=== PATIENT | male | born 1945 | race Caucasian/White ===

== ENCOUNTER 2019-07-05 13:25 | Inpatient (IN) ==
[2019-07-05] MEDS ORDERED: *HR* Heparin 5,000 UNIT/ML VIAL IVP PRN ×2 (13:43)
[2019-07-05] MEDS ORDERED: *HR* Heparin 5,000 UNIT/ML VIAL IVP ONE (13:43)
[2019-07-05] MEDS ORDERED: Aspirin 325 MG TABLET PO ONE (13:43)
[2019-07-05] MEDS ORDERED: Heparin 25,000 UNIT/250 ML D5W 25,000 UNIT/250 ML IV.SOLN IVC SCH (13:45)
[2019-07-05 14:02] LABS: Hematocrit 46.6 % (37.5-50.1); Hemoglobin 15.8 g/dL (12.9-16.9); Mean Corpuscular HGB Conc 33.9 g/dL (31.6-35.5); Mean Corpuscular Volume 94.5 fL (83.0-100.0); Platelet Count 218 K/mcL (140-400); Red Blood Count 4.93 M/mcL (4.19-5.50); Red Cell Distribution Width 12.4 % (11.5-14.5); White Blood Count 7.8 K/mcL (4.3-11.1)
[2019-07-05 14:12] LABS: Heparin anti-factor XA UFH < 0.04 IU/mL (0.30-0.70); Prothrombin Time 11.3 Seconds (9.4-12.1)
[2019-07-05] MEDS ORDERED: Naloxone 0.4 MG/ML INJ IVP PRN (16:23)
[2019-07-05] MEDS ORDERED: Ondansetron 4 MG/2 ML VIAL IVP PRN (16:23)
[2019-07-05] MEDS ORDERED: Ipratropium/Albuterol Neb 3 ML IH PRN (16:47)
[2019-07-05] MEDS ORDERED: *HR* Labetalol 20 MG/4 ML SYRINGE IVP PRN (16:56)
[2019-07-05] MEDS: Ringers Solution, Lactated 1,000 ML IVC SCH (18:33)
[2019-07-05] MEDS ORDERED: Acetaminophen 325 MG TABLET PO ONE (21:58)
[2019-07-06 04:17] LABS: Hematocrit 42.5 % (37.5-50.1); Hemoglobin 14.7 g/dL (12.9-16.9); Mean Corpuscular HGB Conc 34.6 g/dL (31.6-35.5); Mean Corpuscular Hemoglobin 32.6 pg (28.0-33.3); Mean Corpuscular Volume 94.2 fL (83.0-100.0); Mean Platelet Volume 10.5 fL (9.4-12.4); Platelet Count 221 K/mcL (140-400); Red Blood Count 4.51 M/mcL (4.19-5.50); Red Cell Distribution Width 12.5 % (11.5-14.5); White Blood Count 10.8 K/mcL (4.3-11.1)
[2019-07-06 04:30] LABS: Chol/HDL Ratio 7.3 (0-4.9)
[2019-07-06] MEDS ORDERED: Nitroglycerin 0.4 MG TAB.SUBL SL PRN (04:30)
[2019-07-06 04:32] LABS: BUN/Creatinine Ratio 14 (6-26); Blood Urea Nitrogen 14 mg/dL (8-23); Calcium 9.1 mg/dL (8.6-10.3); Carbon Dioxide 24 mEq/L (23-29); Chloride 106 mEq/L (98-107); Glucose 127 mg/dL (70-105); Osmolality,Calculated 294 (280-300); Potassium 3.7 mEq/L (3.5-5.1); Sodium 141 mEq/L (136-145); eGFR For African Americans > 60 (> 60); eGFR For Non-African Americans > 60 (> 60)
[2019-07-06] MEDS ORDERED: predniSONE 20 MG TABLET PO ONE (07:51)
[2019-07-06] MEDS ORDERED: predniSONE 20 MG TABLET PO STA (08:19)
[2019-07-06] MEDS: Ringers Solution, Lactated 1,000 ML IVC SCH (08:53)
[2019-07-06] MEDS ORDERED: amLODIPine 5 MG TABLET PO SCH (09:00)
[2019-07-06] MEDS ORDERED: Loratadine 10 MG TABLET PO SCH (09:00)
[2019-07-06] MEDS ORDERED: Aspirin Enteric Coated 81 MG Tablet PO SCH (09:00)
[2019-07-06] MEDS ORDERED: Tiotropium 18 MCG inhalation IH SCH (09:00)
[2019-07-06 09:50] LABS: Estimated Average Glucose 117 mg/dl
[2019-07-06] MEDS ORDERED: *HR* Heparin 10,000 UNIT/10 ML VIAL ONE (13:00)
[2019-07-06] MEDS ORDERED: Nitroglycerin 1,000 MCG/10 ML VIAL IV ONE (13:00)
[2019-07-06] MEDS ORDERED: Heparin 1,000 UNITS/500 mL 500 ML ONE (13:00)
[2019-07-06] MEDS ORDERED: 0.9 % Sodium Chloride 1,000 ML ONE ×2 (13:00→13:18)
[2019-07-06] MEDS ORDERED: ISOVUE-370 200 ML INFUS..BTL ONE (13:00)
[2019-07-06] MEDS ORDERED: *HR* FentaNYL (PF) 100 MCG/2 ML VIAL ONE (13:18)
[2019-07-06] MEDS ORDERED: *HR* Midazolam HCl 2 MG/2 ML VIAL ONE (13:18)
[2019-07-06] MEDS ORDERED: methylPREDNISolone 125 MG/2 ML VIAL ONE (13:27)
[2019-07-06 19:20] VITALS: BP 120/68
== END 2019-07-06 22:30 | disposition short-term general hospital (02) | DRG 282 ==
LOC: EMEROOARM 13:25 → 2NENU 17:00 → SUATTDRO 17:00 → 2NENU 17:45
PROVIDERS: ADMIT Pharmacist; ATTEND Internal Medicine

== ENCOUNTER 2021-06-08 15:21 | Inpatient (IN) ==
[2021-06-08 16:06] LABS: Basophils % 0.2 %; Hematocrit 43.6 % (37.5-50.1); Hemoglobin 14.2 g/dL (12.9-16.9); Immature Granulocytes % 0.2 % (0-4); Lymphocytes # 0.4 K/mcL (0.6-4.6); Lymphocytes % 10.7 %; Mean Corpuscular HGB Conc 32.6 g/dL (31.6-35.5); Mean Corpuscular Hemoglobin 31.6 pg (28.0-33.3); Mean Corpuscular Volume 97.1 fL (83.0-100.0); Mean Platelet Volume 9.8 fL (9.4-12.4); Monocytes # 0.5 K/mcL (0.0-1.3); Monocytes % 10.9 %; Neutrophils # 3.2 K/mcL (1.6-8.9); Platelet Count 153 K/mcL (140-400); Red Blood Count 4.49 M/mcL (4.19-5.50); Red Cell Distribution Width 12.9 % (11.5-14.5); White Blood Count 4.1 K/mcL (4.3-11.1)
[2021-06-08 16:15] LABS: INR 1.1; Prothrombin Time 12.6 Seconds (9.4-12.1)
[2021-06-08 16:18] LABS: Activated Partial Thrombo Time 30.9 Seconds (26.0-36.0)
[2021-06-08] MEDS ORDERED: Albuterol 2.5 MG/3 ML NEBULIZER IH ONE (16:23)
[2021-06-08 16:30] LABS: Albumin 3.6 g/dL (3.5-5.7); Albumin/Globulin Ratio 1.5 (1.1-2.2); Bilirubin,Direct 0.1 mg/dL (0.0-0.2); Bilirubin,Indirect 0.4 mg/dL (0.0-1.0); Bilirubin,Total 0.5 mg/dL (0.3-1.0); Calcium 7.9 mg/dL (8.6-10.3); Globulin 2.4 g/dL (2.4-3.5); Magnesium 2.2 mg/dL (1.6-2.6); Potassium 3.7 mEq/L (3.5-5.1); Troponin I 0.81 ng/mL (< 0.04)
[2021-06-08] MEDS ORDERED: *HR* Heparin 5,000 UNIT/ML VIAL IVP ONE (17:40)
[2021-06-08] MEDS ORDERED: *HR* Heparin 5,000 UNIT/ML VIAL IVP PRN ×2 (17:40)
[2021-06-08] MEDS ORDERED: Ondansetron 4 MG/2 ML VIAL IVP PRN (18:21)
[2021-06-08] MEDS ORDERED: Naloxone 0.4 MG/ML INJ IVP PRN (18:21)
[2021-06-08] MEDS ORDERED: Acetaminophen 325 MG TABLET PO PRN (18:21)
[2021-06-08] MEDS ORDERED: Azithromycin 500 MG in 0.9 % Sodium Chloride 250 ML IVPB SCH (19:00)
[2021-06-08] MEDS ORDERED: Remdesivir 200 MG in 0.9 % Sodium Chloride 100 ML IVPB ONE (19:00)
[2021-06-08] MEDS ORDERED: cefTRIAXone 1,000 MG in 0.9 % Sodium Chloride Mini Bag 100 ML IVP SCH (19:00)
[2021-06-08] MEDS: Heparin 25,000UNIT/250ML 1/2NS 25,000 UNIT/250 ML IV.SOLN IVC SCH (19:24)
[2021-06-09 02:10] LABS: Hematocrit 41.9 % (37.5-50.1); Hemoglobin 13.6 g/dL (12.9-16.9); Immature Granulocytes % 0.5 % (0-4); Lymphocytes # 0.3 K/mcL (0.6-4.6); Lymphocytes % 7.7 %; Mean Corpuscular HGB Conc 32.5 g/dL (31.6-35.5); Mean Corpuscular Hemoglobin 31.5 pg (28.0-33.3); Mean Platelet Volume 10.1 fL (9.4-12.4); Monocytes # 0.3 K/mcL (0.0-1.3); Monocytes % 6.9 %; Neutrophils # 3.2 K/mcL (1.6-8.9); Platelet Count 151 K/mcL (140-400); Red Blood Count 4.32 M/mcL (4.19-5.50); Red Cell Distribution Width 12.8 % (11.5-14.5); Segmented Neutrophils % 84.9 %; White Blood Count 3.8 K/mcL (4.3-11.1)
[2021-06-09 02:32] LABS: Alanine Aminotransferase 35 Units/L (7-52); Albumin 3.6 g/dL (3.5-5.7); Albumin/Globulin Ratio 1.6 (1.1-2.2); Alkaline Phosphatase 41 Units/L (34-104); Aspartate Amino Transferase 48 Units/L (13-39); BUN/Creatinine Ratio 26 (6-26); Bilirubin,Direct 0.2 mg/dL (0.0-0.2); Bilirubin,Indirect 0.1 mg/dL (0.0-1.0); Bilirubin,Total 0.3 mg/dL (0.3-1.0); Blood Urea Nitrogen 34 mg/dL (8-23); Calcium 7.8 mg/dL (8.6-10.3); Carbon Dioxide 23 mEq/L (23-29); Chloride 110 mEq/L (98-107); Globulin 2.3 g/dL (2.4-3.5); Glucose 149 mg/dL (70-105); Osmolality,Calculated 300 (280-300); Potassium 4.1 mEq/L (3.5-5.1); Sodium 140 mEq/L (136-145); Total Protein 5.9 g/dL (6.4-8.9); eGFR For African Americans > 60 (> 60); eGFR For Non-African Americans 53 (> 60)
[2021-06-09 02:33] LABS: Chol/HDL Ratio 4.2 (0-4.9); Cholesterol 101 mg/dL (< 200); HDL Cholesterol 24 mg/dL (40-59); LDL Cholesterol,Calculated 59 mg/dL (< 100); Magnesium 2.4 mg/dL (1.6-2.6); Phosphorous 4.2 mg/dL (2.7-4.5); Triglycerides 90 mg/dL (< 150)
[2021-06-09 03:35] LABS: Troponin I 0.47 ng/mL (< 0.04)
[2021-06-09 03:39] LABS: Ferritin > 1500 ng/mL (20-250)
[2021-06-09] MEDS: cefTRIAXone 1,000 MG in 0.9 % Sodium Chloride Mini Bag 100 ML IVP SCH (08:03)
[2021-06-09 15:06] LABS: Bacteria,Urine Few per hpf (None-Few); Bilirubin,Urine Negative (Negative); Blood,Urine Negative (Negative); Clarity,Urine Clear (Clear); Color,Urine Yellow (Yellow); Glucose,Urine (UA) 50 mg/dL (Normal); Hyaline Casts,Urine Few per lpf (None Seen); Ketones,Urine Negative (Negative); Leukocyte Esterase,Urine Negative (Negative); Mucus,Urine Few per lpf (None-Few); Nitrite,Urine Negative (Negative); Protein,Urine 30 mg/dL (Neg-Trace); RBC,Urine 0-3 per hpf (0-3); Specific Gravity,Urine 1.028 (1.010-1.025); Squamous Epithelial Cell,Urine Few per hpf (None-Few); Urobilinogen,Urine Normal (Normal); WBC,Urine 0-3 per hpf (0-3)
[2021-06-09] MEDS ORDERED: Remdesivir 100 MG in 0.9 % Sodium Chloride 100 ML IVPB SCH (19:00)
[2021-06-09] MEDS: Heparin 25,000UNIT/250ML 1/2NS 25,000 UNIT/250 ML IV.SOLN IVC SCH (21:59)
[2021-06-10] MEDS: Benzonatate 100 MG CAPSULE PO PRN (06:27)
[2021-06-10 06:28] LABS: Albumin 3.5 g/dL (3.5-5.7); Albumin/Globulin Ratio 1.5 (1.1-2.2); Bilirubin,Direct 0.1 mg/dL (0.0-0.2); Bilirubin,Indirect 0.3 mg/dL (0.0-1.0); Bilirubin,Total 0.4 mg/dL (0.3-1.0); Globulin 2.4 g/dL (2.4-3.5); Total Protein 5.9 g/dL (6.4-8.9)
[2021-06-10 07:00] LABS: Basophils % 0.1 %; Hematocrit 43.1 % (37.5-50.1); Hemoglobin 14.5 g/dL (12.9-16.9); Immature Granulocytes % 0.6 % (0-4); Lymphocytes # 0.4 K/mcL (0.6-4.6); Lymphocytes % 3.8 %; Mean Corpuscular HGB Conc 33.6 g/dL (31.6-35.5); Mean Corpuscular Hemoglobin 32.4 pg (28.0-33.3); Mean Corpuscular Volume 96.2 fL (83.0-100.0); Mean Platelet Volume 10.1 fL (9.4-12.4); Monocytes # 0.8 K/mcL (0.0-1.3); Monocytes % 7.1 %; Platelet Count 181 K/mcL (140-400); Red Blood Count 4.48 M/mcL (4.19-5.50); Red Cell Distribution Width 12.8 % (11.5-14.5); Segmented Neutrophils % 88.4 %
[2021-06-10 07:01] LABS: Neutrophils # 9.6 K/mcL (1.6-8.9); White Blood Count 10.9 K/mcL (4.3-11.1)
[2021-06-10 07:17] LABS: BUN/Creatinine Ratio 29 (6-26); Blood Urea Nitrogen 33 mg/dL (8-23); Carbon Dioxide 26 mEq/L (23-29); Chloride 110 mEq/L (98-107); Glucose 146 mg/dL (70-105); Osmolality,Calculated 306 (280-300); Potassium 4.1 mEq/L (3.5-5.1); Sodium 143 mEq/L (136-145); eGFR For African Americans > 60 (> 60); eGFR For Non-African Americans > 60 (> 60)
[2021-06-10] MEDS: amLODIPine 5 MG TABLET PO SCH (08:05)
[2021-06-10] MEDS: atenoloL 25 MG TABLET PO SCH (08:05)
[2021-06-10] MEDS: lisinopriL 10 MG TABLET PO SCH (08:05)
[2021-06-10] MEDS: cefTRIAXone 1,000 MG in 0.9 % Sodium Chloride Mini Bag 100 ML IVP SCH (08:07)
[2021-06-10] MEDS ORDERED: *HR* LORazepam 2 MG/ML VIAL IVP ONE (09:34)
[2021-06-10] MEDS: Ipratropium 1 PUFF INHALER IH SCH ×4 (10:58→23:43)
[2021-06-10] MEDS ORDERED: Dexamethasone Sodium Phos/PF 10 MG/ML VIAL IVP ONE (11:00)
[2021-06-10 12:01] LABS: Adenovirus Not Detected (Not Detect); Bordetella Pertussis Not Detected (Not Detect); Chlamydophila pneumoniae Not Detected (Not Detect); Coronavirus 229E Not Detected (Not Detect); Coronavirus HKU1 Not Detected (Not Detect); Coronavirus NL63 Not Detected (Not Detect); Coronavirus OC43 Not Detected (Not Detect); Human Metapneumovirus Not Detected (Not Detect); Human Rhinovirus/Enterovirus Not Detected (Not Detect); Influenza A Subtype 2009 H1 Not Detected (Not Detect); Influenza B Not Detected (Not Detect); Mycoplasma pneumoniae Not Detected (Not Detect); Parainfluenza Virus 1 Not Detected (Not Detect); Parainfluenza Virus 2 Not Detected (Not Detect); Parainfluenza Virus 3 Not Detected (Not Detect); Parainfluenza Virus 4 Not Detected (Not Detect); Respiratory Syncytial Virus Not Detected (Not Detect)
[2021-06-10 12:02] LABS: SARS-CoV-2 DETECTED (Not Detect)
[2021-06-10] MEDS: Furosemide 40 MG/4 ML VIAL IVP SCH (19:59)
[2021-06-10] MEDS: Remdesivir 100 MG in 0.9 % Sodium Chloride 100 ML IVPB SCH (20:29)
[2021-06-10 21:14] LABS: ABG Base Excess -1 mEq/L (-2 to 3); ABG HCO3 23 mEq/L (21-27); ABG Oxygen Saturation 86 % (95-98); ABG PCO2 36 mmHg (35-45); ABG PH 7.42 pH Units (7.32-7.45); ABG PO2 50 mmHg (85-104); ABG TCO2 25 mEq/L (20-26); Blood Gas Modality avaps; Blood Gas Pressure Support 35 cm H2O; Blood Gas VT 450 cc
[2021-06-10] MEDS ORDERED: *HR* LORazepam 2 MG/ML VIAL IVP PRN ×2 (21:28→21:32)
[2021-06-11] MEDS ORDERED: *HR* Dextrose 50 % in Water (Syg) 50 ML SYRINGE IVP PRN (01:47)
[2021-06-11] MEDS ORDERED: Dextrose Gel 15 GM/37.5 ML TUBE PO PRN ×2 (01:47)
[2021-06-11] MEDS ORDERED: D5% in Water 1,000 ML IVC PRN (01:47)
[2021-06-11] MEDS: Ipratropium 1 PUFF INHALER IH SCH ×6 (03:35→23:39)
[2021-06-11 03:50] LABS: ABG Base Excess 0 mEq/L (-2 to 3); ABG HCO3 25 mEq/L (21-27); ABG Oxygen Saturation 84 % (95-98); ABG PCO2 39 mmHg (35-45); ABG PH 7.41 pH Units (7.32-7.45); ABG PO2 48 mmHg (85-104); ABG TCO2 26 mEq/L (20-26); Blood Gas Modality avaps; Blood Gas Pressure Support 35 cm H2O; Blood Gas VT 450 cc
[2021-06-11 07:02] LABS: Basophils % 0.1 %; Hematocrit 41.6 % (37.5-50.1); Hemoglobin 13.5 g/dL (12.9-16.9); Immature Granulocytes % 0.5 % (0-4); Lymphocytes # 0.4 K/mcL (0.6-4.6); Lymphocytes % 4.7 %; Mean Corpuscular HGB Conc 32.5 g/dL (31.6-35.5); Mean Corpuscular Hemoglobin 32.3 pg (28.0-33.3); Mean Corpuscular Volume 99.5 fL (83.0-100.0); Mean Platelet Volume 10.1 fL (9.4-12.4); Monocytes # 0.7 K/mcL (0.0-1.3); Monocytes % 8.6 %; Neutrophils # 6.8 K/mcL (1.6-8.9); Platelet Count 198 K/mcL (140-400); Red Blood Count 4.18 M/mcL (4.19-5.50); Red Cell Distribution Width 13.1 % (11.5-14.5); Segmented Neutrophils % 86.1 %; White Blood Count 7.9 K/mcL (4.3-11.1)
[2021-06-11 07:12] LABS: Heparin anti-factor XA UFH 0.44 IU/mL (0.30-0.70); Prothrombin Time 10.6 Seconds (9.4-12.1)
[2021-06-11] MEDS: Multivit/Ca/Min/Fe/FA 1 TAB TABLET PO SCH (09:11)
[2021-06-11] MEDS: Cholecalciferol (D-3) 1,000 UNIT (25MCG) TABLET PO SCH (09:11)
[2021-06-11] MEDS: lisinopriL 10 MG TABLET PO SCH (09:11)
[2021-06-11] MEDS: amLODIPine 5 MG TABLET PO SCH (09:11)
[2021-06-11] MEDS: atenoloL 25 MG TABLET PO SCH (09:12)
[2021-06-11] MEDS: Furosemide 40 MG/4 ML VIAL IVP SCH (09:13)
[2021-06-11] MEDS: cefTRIAXone 1,000 MG in 0.9 % Sodium Chloride Mini Bag 100 ML IVP SCH (09:13)
[2021-06-11] MEDS: Dexamethasone Sodium Phos/PF 10 MG/ML VIAL IVP SCH (09:14)
[2021-06-11] MEDS: Saline Nasal Spray 44 ML BOTTLE NS SCH ×4 (09:14→20:03)
[2021-06-11] MEDS: Chlorhexidine Rinse 15 ML MOUTHWASH MM SCH ×2 (09:14→20:00)
[2021-06-11] MEDS: Saliva Stimulant 44.3ml BOTTLE PO SCH ×4 (09:15→20:03)
[2021-06-11] MEDS: Artificial Tears SOLN 15 ML BOTTLE BOTH EYES SCH ×4 (09:15→20:03)
[2021-06-11 12:01] LABS: Alanine Aminotransferase 47 Units/L (7-52); Albumin 3.8 g/dL (3.5-5.7); Albumin/Globulin Ratio 1.5 (1.1-2.2); Alkaline Phosphatase 72 Units/L (34-104); Aspartate Amino Transferase 52 Units/L (13-39); BUN/Creatinine Ratio 37 (6-26); Bilirubin,Total 0.4 mg/dL (0.3-1.0); Blood Urea Nitrogen 49 mg/dL (8-23); Calcium 8.2 mg/dL (8.6-10.3); Carbon Dioxide 26 mEq/L (23-29); Chloride 107 mEq/L (98-107); Globulin 2.6 g/dL (2.4-3.5); Glucose 173 mg/dL (70-105); Lactate Dehydrogenase 821 Units/L (140-271); Magnesium 2.9 mg/dL (1.6-2.6); Osmolality,Calculated 315 (280-300); Phosphorous 4.5 mg/dL (2.7-4.5); Potassium 4.1 mEq/L (3.5-5.1); Sodium 144 mEq/L (136-145); Total Protein 6.4 g/dL (6.4-8.9); eGFR For African Americans > 60 (> 60); eGFR For Non-African Americans 53 (> 60)
[2021-06-11 12:33] LABS: Ferritin > 1500 ng/mL (20-250)
[2021-06-11 13:04] LABS: C-Reactive Protein 34 mg/L (Less than 10)
[2021-06-11] MEDS: Heparin 25,000UNIT/250ML 1/2NS 25,000 UNIT/250 ML IV.SOLN IVC SCH (15:04)
[2021-06-11] MEDS: Piperacillin/Tazobactam 3.375 GM in 0.9 % Sodium Chloride Mini Bag 100 ML IVPB SCH ×2 (19:25→23:20)
[2021-06-11] MEDS: Remdesivir 100 MG in 0.9 % Sodium Chloride 100 ML IVPB SCH (20:00)
[2021-06-11] MEDS: *HR* Heparin 5,000 UNIT/ML VIAL SQ SCH (21:23)
[2021-06-12 02:44] LABS: Alanine Aminotransferase 53 Units/L (7-52); Albumin 3.4 g/dL (3.5-5.7); Albumin/Globulin Ratio 1.4 (1.1-2.2); Alkaline Phosphatase 79 Units/L (34-104); Aspartate Amino Transferase 60 Units/L (13-39); BUN/Creatinine Ratio 46 (6-26); Bilirubin,Total 0.4 mg/dL (0.3-1.0); Blood Urea Nitrogen 60 mg/dL (8-23); C-Reactive Protein 21 mg/L (Less than 10); Calcium 7.7 mg/dL (8.6-10.3); Carbon Dioxide 25 mEq/L (23-29); Chloride 110 mEq/L (98-107); Globulin 2.4 g/dL (2.4-3.5); Glucose 193 mg/dL (70-105); Osmolality,Calculated 314 (280-300); Potassium 4.1 mEq/L (3.5-5.1); Sodium 141 mEq/L (136-145); Total Protein 5.8 g/dL (6.4-8.9); eGFR For African Americans > 60 (> 60); eGFR For Non-African Americans 54 (> 60)
[2021-06-12 02:45] LABS: Prothrombin Time 10.9 Seconds (9.4-12.1)
[2021-06-12] MEDS: Ipratropium 1 PUFF INHALER IH SCH ×6 (04:07→23:36)
[2021-06-12] MEDS: *HR* Heparin 5,000 UNIT/ML VIAL SQ SCH ×3 (05:08→20:55)
[2021-06-12] MEDS: *HR* LORazepam 2 MG/ML VIAL IVP PRN ×2 (05:48→23:53)
[2021-06-12] MEDS: Saliva Stimulant 44.3ml BOTTLE PO SCH ×4 (07:51→19:38)
[2021-06-12] MEDS: Saline Nasal Spray 44 ML BOTTLE NS SCH ×4 (07:52→19:38)
[2021-06-12] MEDS: Piperacillin/Tazobactam 3.375 GM in 0.9 % Sodium Chloride Mini Bag 100 ML IVPB SCH ×3 (07:53→23:52)
[2021-06-12] MEDS: Dexamethasone Sodium Phos/PF 10 MG/ML VIAL IVP SCH (07:55)
[2021-06-12] MEDS: Multivit/Ca/Min/Fe/FA 1 TAB TABLET PO SCH (07:56)
[2021-06-12] MEDS: Furosemide 40 MG/4 ML VIAL IVP SCH (07:56)
[2021-06-12] MEDS: atenoloL 25 MG TABLET PO SCH (07:56)
[2021-06-12] MEDS: Cholecalciferol (D-3) 1,000 UNIT (25MCG) TABLET PO SCH (07:56)
[2021-06-12] MEDS: amLODIPine 5 MG TABLET PO SCH (07:56)
[2021-06-12] MEDS: Artificial Tears SOLN 15 ML BOTTLE BOTH EYES SCH ×4 (08:04→19:38)
[2021-06-12] MEDS: Chlorhexidine Rinse 15 ML MOUTHWASH MM SCH ×2 (08:08→19:38)
[2021-06-12] MEDS: Remdesivir 100 MG in 0.9 % Sodium Chloride 100 ML IVPB SCH (19:38)
[2021-06-12] MEDS: Melatonin 3 MG TABLET PO PRN (19:39)
[2021-06-12] MEDS: Benzonatate 100 MG CAPSULE PO PRN (23:53)
[2021-06-13] MEDS: Ipratropium 1 PUFF INHALER IH SCH ×6 (03:52→23:22)
[2021-06-13 05:30] LABS: Prothrombin Time 11.4 Seconds (9.4-12.1)
[2021-06-13] MEDS: *HR* Enoxaparin 40 MG/0.4 ML SYRINGE SQ SCH (05:33)
[2021-06-13 05:37] LABS: Alanine Aminotransferase 64 Units/L (7-52); Albumin 3.5 g/dL (3.5-5.7); Albumin/Globulin Ratio 1.5 (1.1-2.2); Alkaline Phosphatase 107 Units/L (34-104); Aspartate Amino Transferase 53 Units/L (13-39); BUN/Creatinine Ratio 41 (6-26); Bilirubin,Total 0.6 mg/dL (0.3-1.0); Blood Urea Nitrogen 56 mg/dL (8-23); C-Reactive Protein 18 mg/L (Less than 10); Calcium 7.9 mg/dL (8.6-10.3); Carbon Dioxide 30 mEq/L (23-29); Chloride 112 mEq/L (98-107); Globulin 2.4 g/dL (2.4-3.5); Glucose 239 mg/dL (70-105); Osmolality,Calculated 319 (280-300); Potassium 4.4 mEq/L (3.5-5.1); Sodium 143 mEq/L (136-145); Total Protein 5.9 g/dL (6.4-8.9); eGFR For African Americans > 60 (> 60); eGFR For Non-African Americans 51 (> 60)
[2021-06-13] MEDS: Piperacillin/Tazobactam 3.375 GM in 0.9 % Sodium Chloride Mini Bag 100 ML IVPB SCH ×3 (08:23→23:19)
[2021-06-13] MEDS: Saliva Stimulant 44.3ml BOTTLE PO SCH ×4 (08:23→20:24)
[2021-06-13] MEDS: Artificial Tears SOLN 15 ML BOTTLE BOTH EYES SCH ×4 (08:23→20:24)
[2021-06-13] MEDS: Saline Nasal Spray 44 ML BOTTLE NS SCH ×4 (08:23→20:24)
[2021-06-13] MEDS: Chlorhexidine Rinse 15 ML MOUTHWASH MM SCH ×2 (08:24→20:24)
[2021-06-13] MEDS: Furosemide 40 MG/4 ML VIAL IVP SCH (08:24)
[2021-06-13] MEDS: Dexamethasone Sodium Phos/PF 10 MG/ML VIAL IVP SCH (08:24)
[2021-06-13] MEDS: Cholecalciferol (D-3) 1,000 UNIT (25MCG) TABLET PO SCH (08:25)
[2021-06-13] MEDS: atenoloL 25 MG TABLET PO SCH (08:25)
[2021-06-13] MEDS: Multivit/Ca/Min/Fe/FA 1 TAB TABLET PO SCH (08:25)
[2021-06-13] MEDS: Nystatin SUSP 5 ML UD.LIQ PO SCH ×2 (16:14→20:24)
[2021-06-13] MEDS: *HR* LORazepam 2 MG/ML VIAL IVP PRN (21:38)
[2021-06-14] MEDS: Ipratropium 1 PUFF INHALER IH SCH ×6 (03:39→23:27)
[2021-06-14] MEDS: *HR* Enoxaparin 40 MG/0.4 ML SYRINGE SQ SCH (05:10)
[2021-06-14] MEDS: Saline Nasal Spray 44 ML BOTTLE NS SCH ×4 (08:09→20:12)
[2021-06-14] MEDS: Saliva Stimulant 44.3ml BOTTLE PO SCH ×4 (08:09→20:12)
[2021-06-14] MEDS: Chlorhexidine Rinse 15 ML MOUTHWASH MM SCH ×2 (08:09→20:11)
[2021-06-14] MEDS: Artificial Tears SOLN 15 ML BOTTLE BOTH EYES SCH ×4 (08:09→20:12)
[2021-06-14] MEDS: Multivit/Ca/Min/Fe/FA 1 TAB TABLET PO SCH (08:09)
[2021-06-14] MEDS: Nystatin SUSP 5 ML UD.LIQ PO SCH ×4 (08:09→20:11)
[2021-06-14] MEDS: Cholecalciferol (D-3) 1,000 UNIT (25MCG) TABLET PO SCH (08:10)
[2021-06-14] MEDS: atenoloL 25 MG TABLET PO SCH (08:10)
[2021-06-14] MEDS: Dexamethasone Sodium Phos/PF 10 MG/ML VIAL IVP SCH (08:10)
[2021-06-14] MEDS: Piperacillin/Tazobactam 3.375 GM in 0.9 % Sodium Chloride Mini Bag 100 ML IVPB SCH ×3 (08:11→23:07)
[2021-06-14 13:52] LABS: Basophils % 0.3 %; Hematocrit 46.7 % (37.5-50.1); Immature Granulocytes % 1.2 % (0-4); Lymphocytes # 0.3 K/mcL (0.6-4.6); Lymphocytes % 1.9 %; Mean Corpuscular HGB Conc 32.3 g/dL (31.6-35.5); Mean Corpuscular Hemoglobin 31.7 pg (28.0-33.3); Mean Corpuscular Volume 97.9 fL (83.0-100.0); Mean Platelet Volume 10.6 fL (9.4-12.4); Monocytes # 0.9 K/mcL (0.0-1.3); Monocytes % 5.7 %; Platelet Count 248 K/mcL (140-400); Red Blood Count 4.77 M/mcL (4.19-5.50); Red Cell Distribution Width 12.6 % (11.5-14.5); Segmented Neutrophils % 90.9 %
[2021-06-14 13:56] LABS: Basophils # 0.1 K/mcL (0.0-0.2); Hemoglobin 15.1 g/dL (12.9-16.9); White Blood Count 15.4 K/mcL (4.3-11.1)
[2021-06-14 14:26] LABS: Alanine Aminotransferase 51 Units/L (7-52); Albumin 3.6 g/dL (3.5-5.7); Albumin/Globulin Ratio 1.4 (1.1-2.2); Alkaline Phosphatase 154 Units/L (34-104); Aspartate Amino Transferase 37 Units/L (13-39); BUN/Creatinine Ratio 42 (6-26); Bilirubin,Total 0.7 mg/dL (0.3-1.0); Blood Urea Nitrogen 48 mg/dL (8-23); Calcium 8.1 mg/dL (8.6-10.3); Carbon Dioxide 28 mEq/L (23-29); Chloride 108 mEq/L (98-107); Globulin 2.6 g/dL (2.4-3.5); Glucose 257 mg/dL (70-105); Osmolality,Calculated 317 (280-300); Potassium 4.9 mEq/L (3.5-5.1); Sodium 143 mEq/L (136-145); Total Protein 6.2 g/dL (6.4-8.9); eGFR For African Americans > 60 (> 60); eGFR For Non-African Americans > 60 (> 60)
[2021-06-14] MEDS: *HR* LORazepam 2 MG/ML VIAL IVP PRN ×2 (15:01→23:08)
[2021-06-14] MEDS ORDERED: Lidocaine -MPF 1% 5 ML AMPUL INFILT ONE (17:43)
[2021-06-14] MEDS: Melatonin 3 MG TABLET PO PRN (20:11)
[2021-06-14] MEDS: Benzonatate 100 MG CAPSULE PO PRN (20:12)
[2021-06-15 02:02] LABS: BUN/Creatinine Ratio 40 (6-26); Blood Urea Nitrogen 44 mg/dL (8-23); Calcium 7.7 mg/dL (8.6-10.3); Carbon Dioxide 28 mEq/L (23-29); Chloride 112 mEq/L (98-107); Glucose 243 mg/dL (70-105); Magnesium 3.1 mg/dL (1.6-2.6); Osmolality,Calculated 317 (280-300); Phosphorous 3.3 mg/dL (2.7-4.5); Potassium 4.7 mEq/L (3.5-5.1); Sodium 144 mEq/L (136-145); Triglycerides 301 mg/dL (< 150); eGFR For African Americans > 60 (> 60); eGFR For Non-African Americans > 60 (> 60)
[2021-06-15] MEDS: Ipratropium 1 PUFF INHALER IH SCH ×6 (03:50→23:58)
[2021-06-15] MEDS: *HR* Enoxaparin 40 MG/0.4 ML SYRINGE SQ SCH (05:21)
[2021-06-15] MEDS: Nystatin SUSP 5 ML UD.LIQ PO SCH ×4 (08:38→18:15)
[2021-06-15] MEDS: Dexamethasone Sodium Phos/PF 10 MG/ML VIAL IVP SCH (08:38)
[2021-06-15] MEDS: atenoloL 25 MG TABLET PO SCH (08:38)
[2021-06-15] MEDS: Artificial Tears SOLN 15 ML BOTTLE BOTH EYES SCH ×4 (08:39→19:41)
[2021-06-15] MEDS: Saline Nasal Spray 44 ML BOTTLE NS SCH ×4 (08:39→19:41)
[2021-06-15] MEDS: Piperacillin/Tazobactam 3.375 GM in 0.9 % Sodium Chloride Mini Bag 100 ML IVPB SCH ×3 (08:39→23:50)
[2021-06-15] MEDS: Saliva Stimulant 44.3ml BOTTLE PO SCH ×4 (08:41→20:30)
[2021-06-15] MEDS: Multivit/Ca/Min/Fe/FA 1 TAB TABLET PO SCH (08:49)
[2021-06-15] MEDS: Chlorhexidine Rinse 15 ML MOUTHWASH MM SCH ×3 (08:49→20:30)
[2021-06-15] MEDS: Cholecalciferol (D-3) 1,000 UNIT (25MCG) TABLET PO SCH (08:50)
[2021-06-15] MEDS ORDERED: D10% in Water 500 ML IVC PRN (11:12)
[2021-06-15] MEDS ORDERED: *HR* Dextrose 50 % in Water (Syg) 50 ML SYRINGE IVP PRN (11:40)
[2021-06-15] MEDS ORDERED: D5% in Water 1,000 ML IVC PRN (11:40)
[2021-06-15] MEDS ORDERED: Dextrose Gel 15 GM/37.5 ML TUBE PO PRN ×2 (11:40)
[2021-06-15] MEDS: *HR* LORazepam 2 MG/ML VIAL IVP PRN ×2 (14:31→23:45)
[2021-06-15] MEDS ORDERED: *HR* Heparin 5,000 UNIT/ML VIAL IVP ONE (14:34)
[2021-06-15] MEDS ORDERED: *HR* Heparin 5,000 UNIT/ML VIAL IVP PRN ×2 (14:34)
[2021-06-15] MEDS: Insulin LISPRO 300 UNITS/3 ML VIAL SUBQ SCH ×3 (14:35→19:45)
[2021-06-15] MEDS: Heparin 25,000UNIT/250ML 1/2NS 25,000 UNIT/250 ML IV.SOLN IVC SCH (16:29)
[2021-06-15] MEDS ORDERED: Fat Emulsion 250 ML IVPB SCH (17:00)
[2021-06-15] MEDS ORDERED: Clinimix E 5%-15% SOLUTION 2,000 ML with MVI, adult with vitamin K 10 ML IVC SCH (17:00)
[2021-06-15 17:11] LABS: Hematocrit 44.6 % (37.5-50.1); Hemoglobin 14.3 g/dL (12.9-16.9); Mean Corpuscular HGB Conc 32.1 g/dL (31.6-35.5); Mean Corpuscular Volume 96.5 fL (83.0-100.0); Mean Platelet Volume 11.1 fL (9.4-12.4); Platelet Count 223 K/mcL (140-400); Red Blood Count 4.62 M/mcL (4.19-5.50); Red Cell Distribution Width 12.6 % (11.5-14.5); White Blood Count 12.4 K/mcL (4.3-11.1)
[2021-06-15 17:19] LABS: Heparin anti-factor XA UFH 0.28 IU/mL (0.30-0.70)
[2021-06-15 17:20] LABS: INR 1.1; Prothrombin Time 12.4 Seconds (9.4-12.1)
[2021-06-16] MEDS: Insulin LISPRO 300 UNITS/3 ML VIAL SUBQ SCH ×6 (02:57→21:15)
[2021-06-16] MEDS ORDERED: Haloperidol Lactate 5 MG/ML VIAL IM PRN (03:16)
[2021-06-16] MEDS: Ipratropium 1 PUFF INHALER IH SCH ×5 (03:48→20:34)
[2021-06-16 04:13] LABS: BUN/Creatinine Ratio 36 (6-26); Blood Urea Nitrogen 38 mg/dL (8-23); Calcium 8.2 mg/dL (8.6-10.3); Carbon Dioxide 28 mEq/L (23-29); Chloride 110 mEq/L (98-107); Glucose 195 mg/dL (70-105); Osmolality,Calculated 312 (280-300); Potassium 4.7 mEq/L (3.5-5.1); Sodium 144 mEq/L (136-145); eGFR For African Americans > 60 (> 60); eGFR For Non-African Americans > 60 (> 60)
[2021-06-16] MEDS ORDERED: Haloperidol Lactate 5 MG/ML VIAL IVP ONE (04:49)
[2021-06-16 05:04] LABS: ABG Base Excess 1 mEq/L (-2 to 3); ABG HCO3 25 mEq/L (21-27); ABG Oxygen Saturation 81 % (95-98); ABG PCO2 36 mmHg (35-45); ABG PH 7.45 pH Units (7.32-7.45); ABG PO2 43 mmHg (85-104); ABG TCO2 26 mEq/L (20-26); Blood Gas VT 450 cc
[2021-06-16] MEDS: Dexmedetomidine HCl 400 MCG/100 ML MLS IVC SCH (05:28)
[2021-06-16] MEDS: Piperacillin/Tazobactam 3.375 GM in 0.9 % Sodium Chloride Mini Bag 100 ML IVPB SCH ×2 (07:40→16:47)
[2021-06-16] MEDS: Nystatin SUSP 5 ML UD.LIQ PO SCH (07:40)
[2021-06-16] MEDS: Chlorhexidine Rinse 15 ML MOUTHWASH MM SCH ×2 (07:40→21:16)
[2021-06-16] MEDS: Multivit/Ca/Min/Fe/FA 1 TAB TABLET PO SCH (07:40)
[2021-06-16] MEDS: Cholecalciferol (D-3) 1,000 UNIT (25MCG) TABLET PO SCH (07:40)
[2021-06-16] MEDS: Pantoprazole 40 MG VIAL IVP SCH (07:56)
[2021-06-16] MEDS: Saline Nasal Spray 44 ML BOTTLE NS SCH (07:56)
[2021-06-16] MEDS: atenoloL 25 MG TABLET PO SCH (07:56)
[2021-06-16] MEDS: Dexamethasone Sodium Phos/PF 10 MG/ML VIAL IVP SCH (07:56)
[2021-06-16] MEDS: Artificial Tears SOLN 15 ML BOTTLE BOTH EYES SCH ×4 (07:57→21:16)
[2021-06-16] MEDS: Saliva Stimulant 44.3ml BOTTLE PO SCH ×2 (07:57→15:51)
[2021-06-16] MEDS ORDERED: Morphine Sulfate 2 MG/ML SYRINGE IVP ONE (09:00)
[2021-06-16] MEDS ORDERED: Furosemide 20 MG/2 ML VIAL IVP ONE (09:07)
[2021-06-16] MEDS ORDERED: Artificial Tears SOLN 15 ML BOTTLE BOTH EYES PRN (09:46)
[2021-06-16] MEDS ORDERED: Norepinephrine 4 MG/254 ML IV.SOLN IVC SCH (10:00)
[2021-06-16] MEDS: Cisatracurium 200 MG in 0.9 % Sodium Chloride 180 ML IVC SCH (10:06)
[2021-06-16] MEDS: Norepinephrine 4 MG/254 ML IV.SOLN IVC SCH ×2 (10:12→22:51)
[2021-06-16] MEDS: FentaNYL (PF) 1,000 MCG/100 ML IV.SOLN IVC SCH ×2 (10:12→16:45)
[2021-06-16] MEDS: Budesonide/Formoterol 160/4.5 1 PUFF INH IH SCH ×2 (11:20→20:33)
[2021-06-16 11:25] LABS: ABG Base Excess 0 mEq/L (-2 to 3); ABG HCO3 34 mEq/L (21-27); ABG Oxygen Saturation 93 % (95-98); ABG PCO2 98 mmHg (35-45); ABG PH 7.14 pH Units (7.32-7.45); ABG PO2 93 mmHg (85-104); ABG TCO2 37 mEq/L (20-26); Blood Gas Modality ASSIST CONTROL; Blood Gas VT 500 cc
[2021-06-16] MEDS ORDERED: *HR* Midazolam HCl 2 MG/2 ML VIAL IVP ONE ×2 (12:37→12:46)
[2021-06-16] MEDS ORDERED: *HR* Rocuronium Bromide 50 MG/5 ML VIAL IVP ONE (12:46)
[2021-06-16] MEDS ORDERED: *HR* Midazolam HCl 5 MG/5 ML VIAL IVP ONE (12:46)
[2021-06-16] MEDS ORDERED: *HR* Succinylcholine 200 MG/10 ML VIAL IVP ONE (12:46)
[2021-06-16] MEDS ORDERED: *HR* Etomidate 20 MG/10 ML AMPUL IVP ONE (12:46)
[2021-06-16 16:03] LABS: ABG Base Excess -2 mEq/L (-2 to 3); ABG HCO3 29 mEq/L (21-27); ABG Oxygen Saturation 87 % (95-98); ABG PCO2 80 mmHg (35-45); ABG PH 7.17 pH Units (7.32-7.45); ABG PO2 70 mmHg (85-104); ABG TCO2 32 mEq/L (20-26); Blood Gas Modality AF; Blood Gas VT 450 cc
[2021-06-16] MEDS ORDERED: Clinimix 5%-20% SOLUTION 2,000 ML with MVI, adult with vitamin K 10 ML, Sodium Acetat... IVC SCH (17:00)
[2021-06-16] MEDS ORDERED: Clinimix E 5%-15% SOLUTION 2,000 ML with MVI, adult with vitamin K 10 ML IVC SCH (17:00)
[2021-06-16] MEDS: Albumin Human 5% 12.5 GM/250 ML IV.SOLN IVC SCH ×2 (18:09→19:33)
[2021-06-16 23:21] LABS: Basophils # 0.1 K/mcL (0.0-0.2); Basophils % 0.4 %; Hematocrit 41.2 % (37.5-50.1); Hemoglobin 12.9 g/dL (12.9-16.9); Immature Granulocytes % 1.7 % (0-4); Lymphocytes # 0.3 K/mcL (0.6-4.6); Lymphocytes % 1.9 %; Mean Corpuscular HGB Conc 31.3 g/dL (31.6-35.5); Mean Corpuscular Hemoglobin 31.7 pg (28.0-33.3); Mean Corpuscular Volume 101.2 fL (83.0-100.0); Mean Platelet Volume 11.4 fL (9.4-12.4); Monocytes # 0.9 K/mcL (0.0-1.3); Monocytes % 5.8 %; Neutrophils # 14.5 K/mcL (1.6-8.9); Platelet Count 216 K/mcL (140-400); Red Blood Count 4.07 M/mcL (4.19-5.50); Segmented Neutrophils % 90.2 %; White Blood Count 16.1 K/mcL (4.3-11.1)
[2021-06-17] MEDS ORDERED: Insulin LISPRO 300 UNITS/3 ML VIAL SUBQ SCH
[2021-06-17] MEDS: Ipratropium 1 PUFF INHALER IH SCH ×6 (00:05→20:42)
[2021-06-17 00:06] LABS: ABG Base Excess 3 mEq/L (-2 to 3); ABG HCO3 32 mEq/L (21-27); ABG Oxygen Saturation 82 % (95-98); ABG PCO2 71 mmHg (35-45); ABG PH 7.26 pH Units (7.32-7.45); ABG PO2 55 mmHg (85-104); ABG TCO2 34 mEq/L (20-26); Blood Gas Modality ASSIST CONTROL; Blood Gas VT 450 cc
[2021-06-17] MEDS: FentaNYL (PF) 1,000 MCG/100 ML IV.SOLN IVC SCH ×4 (00:27→19:39)
[2021-06-17] MEDS: Insulin LISPRO 300 UNITS/3 ML VIAL SUBQ SCH ×6 (00:41→20:20)
[2021-06-17] MEDS: Artificial Tears SOLN 15 ML BOTTLE BOTH EYES SCH ×6 (00:41→20:20)
[2021-06-17] MEDS: Piperacillin/Tazobactam 3.375 GM in 0.9 % Sodium Chloride Mini Bag 100 ML IVPB SCH ×3 (00:45→16:51)
[2021-06-17] MEDS: Cisatracurium 200 MG in 0.9 % Sodium Chloride 180 ML IVC SCH ×2 (00:58→15:59)
[2021-06-17] MEDS: Heparin 25,000UNIT/250ML 1/2NS 25,000 UNIT/250 ML IV.SOLN IVC SCH (04:10)
[2021-06-17 04:54] LABS: Hematocrit 38.9 % (37.5-50.1)
[2021-06-17 05:06] LABS: ABG Base Excess 3 mEq/L (-2 to 3); ABG HCO3 33 mEq/L (21-27); ABG Oxygen Saturation 90 % (95-98); ABG PCO2 74 mmHg (35-45); ABG PH 7.25 pH Units (7.32-7.45); ABG PO2 70 mmHg (85-104); ABG TCO2 35 mEq/L (20-26); Blood Gas Modality ASSIST CONTROL; Blood Gas VT 450 cc
[2021-06-17 05:12] LABS: Calcium 7.1 mg/dL (8.6-10.3); Magnesium 3.1 mg/dL (1.6-2.6); Phosphorous 6.3 mg/dL (2.7-4.5); Potassium 5.1 mEq/L (3.5-5.1)
[2021-06-17] MEDS: Dexmedetomidine HCl 400 MCG/100 ML MLS IVC SCH (06:56)
[2021-06-17] MEDS: Norepinephrine 4 MG/254 ML IV.SOLN IVC SCH ×2 (07:35→19:56)
[2021-06-17] MEDS: Budesonide/Formoterol 160/4.5 1 PUFF INH IH SCH ×2 (08:00→20:44)
[2021-06-17] MEDS: Cholecalciferol (D-3) 1,000 UNIT (25MCG) TABLET PO SCH (08:52)
[2021-06-17] MEDS: Chlorhexidine Rinse 15 ML MOUTHWASH MM SCH ×2 (08:52→20:20)
[2021-06-17] MEDS: Pantoprazole 40 MG VIAL IVP SCH (08:52)
[2021-06-17] MEDS: Dexamethasone Sodium Phos/PF 10 MG/ML VIAL IVP SCH (08:53)
[2021-06-17] MEDS: Multivit/Ca/Min/Fe/FA 1 TAB TABLET PO SCH (08:53)
[2021-06-17 10:47] LABS: Hematocrit 39.1 % (37.5-50.1)
[2021-06-17 13:59] LABS: ABG Base Excess 0 mEq/L (-2 to 3); ABG HCO3 30 mEq/L (21-27); ABG Oxygen Saturation 94 % (95-98); ABG PCO2 78 mmHg (35-45); ABG PO2 91 mmHg (85-104); ABG TCO2 33 mEq/L (20-26); Blood Gas Modality AF; Blood Gas VT 400 cc
[2021-06-17 16:14] LABS: Bacteria,Urine Few per hpf (None-Few); Bilirubin,Urine Negative (Negative); Blood,Urine Small (Negative); Budding Yeast,Urine Many per hpf (None Seen); Clarity,Urine Ex.Turbid (Clear); Color,Urine Yellow (Yellow); Glucose,Urine (UA) 50 mg/dL (Normal); Granular Casts,Urine Moderate per lpf (None Seen); Hyaline Casts,Urine Few per lpf (None Seen); Ketones,Urine Negative (Negative); Leukocyte Esterase,Urine Negative (Negative); Mucus,Urine Few per lpf (None-Few); Nitrite,Urine Negative (Negative); Protein,Urine 70 mg/dL (Neg-Trace); Specific Gravity,Urine 1.017 (1.010-1.025); Urobilinogen,Urine Normal (Normal); WBC,Urine 50-100 per hpf (0-3)
[2021-06-17 17:00] LABS: Hemoglobin 12.2 g/dL (12.9-16.9)
[2021-06-17] MEDS ORDERED: Clinimix 5%-20% SOLUTION 2,000 ML with MVI, adult with vitamin K 10 ML, Sodium Acetat... IVC SCH ×2 (17:00)
[2021-06-17] MEDS ORDERED: Clinimix E 5%-15% SOLUTION 2,000 ML with MVI, adult with vitamin K 10 ML IVC SCH (17:00)
[2021-06-17] MEDS ORDERED: *HR* Metoprolol 5 MG/5 ML VIAL IVP ONE ×2 (22:45→23:09)
[2021-06-18] MEDS ORDERED: Amiodarone Premix 360 MG/200 ML BAG IVC ONE (00:07)
[2021-06-18] MEDS: Piperacillin/Tazobactam 3.375 GM in 0.9 % Sodium Chloride Mini Bag 100 ML IVPB SCH ×3 (00:08→20:16)
[2021-06-18] MEDS: Artificial Tears SOLN 15 ML BOTTLE BOTH EYES SCH ×7 (00:11→23:35)
[2021-06-18] MEDS: Insulin LISPRO 300 UNITS/3 ML VIAL SUBQ SCH ×6 (00:33→20:06)
[2021-06-18] MEDS: Ipratropium 1 PUFF INHALER IH SCH ×7 (00:49→23:40)
[2021-06-18] MEDS ORDERED: D5 IVPB ONE (01:12)
[2021-06-18] MEDS ORDERED: AMIODARONE IVPB ONE (01:12)
[2021-06-18] MEDS ORDERED: WATER IVPB ONE (01:12)
[2021-06-18] MEDS: FentaNYL (PF) 1,000 MCG/100 ML IV.SOLN IVC SCH ×4 (01:21→20:05)
[2021-06-18 04:21] LABS: VBG Ionized Calcium 1.02 mmol/L (1.15-1.35)
[2021-06-18 04:36] LABS: Heparin anti-factor XA UFH 0.43 IU/mL (0.30-0.70)
[2021-06-18 04:41] LABS: Albumin 2.9 g/dL (3.5-5.7); Albumin/Globulin Ratio 1.1 (1.1-2.2); Bilirubin,Direct 0.1 mg/dL (0.0-0.2); Bilirubin,Indirect 0.2 mg/dL (0.0-1.0); Bilirubin,Total 0.3 mg/dL (0.3-1.0); Calcium 7.2 mg/dL (8.6-10.3); Globulin 2.6 g/dL (2.4-3.5); Magnesium 3.3 mg/dL (1.6-2.6); Potassium 5.8 mEq/L (3.5-5.1); Total Protein 5.5 g/dL (6.4-8.9)
[2021-06-18 04:44] LABS: ABG Base Excess -2 mEq/L (-2 to 3); ABG HCO3 29 mEq/L (21-27); ABG Oxygen Saturation 83 % (95-98); ABG PCO2 82 mmHg (35-45); ABG PH 7.15 pH Units (7.32-7.45); ABG PO2 63 mmHg (85-104); ABG TCO2 31 mEq/L (20-26); Blood Gas VT 400 cc
[2021-06-18] MEDS ORDERED: Insulin Human Regular 10 UNIT in 0.9 % Sodium Chloride 10 ML IV ONE (04:50)
[2021-06-18] MEDS ORDERED: SODIUM ZIRCONIUM CYCLOSILICATE 5 GM POWD.PACK PO ONE (04:55)
[2021-06-18 04:58] LABS: Basophils # 0.1 K/mcL (0.0-0.2); Basophils % 0.4 %; Eosinophils % 0.1 %; Hematocrit 40.4 % (37.5-50.1); Hemoglobin 11.9 g/dL (12.9-16.9); Immature Granulocytes % 4.3 % (0-4); Lymphocytes # 0.3 K/mcL (0.6-4.6); Lymphocytes % 1.6 %; Mean Corpuscular HGB Conc 29.5 g/dL (31.6-35.5); Mean Corpuscular Hemoglobin 31.6 pg (28.0-33.3); Mean Platelet Volume 11.8 fL (9.4-12.4); Monocytes # 1.1 K/mcL (0.0-1.3); Monocytes % 6.2 %; Neutrophils # 15.8 K/mcL (1.6-8.9); Nucleated Red Blood Cells 0.1 /100 WBC (0); Platelet Count 208 K/mcL (140-400); Red Blood Count 3.76 M/mcL (4.19-5.50); Red Cell Distribution Width 13.5 % (11.5-14.5); Segmented Neutrophils % 87.4 %; White Blood Count 18.1 K/mcL (4.3-11.1)
[2021-06-18 04:59] LABS: Mean Corpuscular Volume 107.4 fL (83.0-100.0)
[2021-06-18] MEDS: Calcium Gluconate 1gm/50mL 1 GM/50 ML BAG IVPB PRN ×2 (05:40→06:31)
[2021-06-18] MEDS: Amiodarone Premix 360 MG/200 ML BAG IVC SCH ×2 (06:32→18:28)
[2021-06-18] MEDS: Cisatracurium 200 MG in 0.9 % Sodium Chloride 180 ML IVC SCH ×2 (07:37→23:21)
[2021-06-18] MEDS: Budesonide/Formoterol 160/4.5 1 PUFF INH IH SCH ×2 (07:45→19:33)
[2021-06-18] MEDS: Dexamethasone Sodium Phos/PF 10 MG/ML VIAL IVP SCH (08:19)
[2021-06-18] MEDS: Pantoprazole 40 MG VIAL IVP SCH (08:19)
[2021-06-18] MEDS: Chlorhexidine Rinse 15 ML MOUTHWASH MM SCH ×2 (08:19→20:16)
[2021-06-18] MEDS: Cholecalciferol (D-3) 1,000 UNIT (25MCG) TABLET PO SCH (08:20)
[2021-06-18] MEDS: Insulin DETEMIR 100 UNIT/ML X5UNITS SUBQ SCH ×2 (08:44→20:16)
[2021-06-18] MEDS: Heparin 25,000UNIT/250ML 1/2NS 25,000 UNIT/250 ML IV.SOLN IVC SCH (09:37)
[2021-06-18] MEDS: Norepinephrine 4 MG/254 ML IV.SOLN IVC SCH ×3 (09:37→23:21)
[2021-06-18 11:03] LABS: Calcium 7.9 mg/dL (8.6-10.3); Potassium 5.7 mEq/L (3.5-5.1)
[2021-06-18] MEDS ORDERED: 0.9 % Sodium Chloride 1,000 ML ONE (12:04)
[2021-06-18 12:59] LABS: ABG Base Excess -4 mEq/L (-2 to 3); ABG HCO3 27 mEq/L (21-27); ABG Oxygen Saturation 76 % (95-98); ABG PCO2 83 mmHg (35-45); ABG PH 7.12 pH Units (7.32-7.45); ABG PO2 56 mmHg (85-104); ABG TCO2 30 mEq/L (20-26); Blood Gas VT 40 cc
[2021-06-18] MEDS ORDERED: Heparin 1,000 UNITS/500 mL 500 ML ONE (13:17)
[2021-06-18] MEDS ORDERED: *HR* Heparin 5,000 UNIT/ML VIAL ONE (13:59)
[2021-06-18 14:55] LABS: ABG Base Excess -4 mEq/L (-2 to 3); ABG HCO3 26 mEq/L (21-27); ABG Oxygen Saturation 75 % (95-98); ABG PCO2 67 mmHg (35-45); ABG PH 7.19 pH Units (7.32-7.45); ABG PO2 50 mmHg (85-104); ABG TCO2 28 mEq/L (20-26); Blood Gas VT 420 cc
[2021-06-18] MEDS ORDERED: *HR* Heparin 5,000 UNIT/ML VIAL IVP PRN (15:32)
[2021-06-18] MEDS ORDERED: 0.9 % Sodium Chloride 2,000 ML ONE (16:10)
[2021-06-18] MEDS: PrismaSATE BGK 4/2.5 5,000 ML CRRT SCH ×4 (16:56→23:23)
[2021-06-18] MEDS ORDERED: Clinimix 5%-20% SOLUTION 2,000 ML with MVI, adult with vitamin K 10 ML, Sodium Acetat... IVC SCH (17:00)
[2021-06-18] MEDS ORDERED: Insulin DETEMIR 100 UNIT/ML X5UNITS SUBQ SCH (21:00)
[2021-06-19] MEDS: FentaNYL (PF) 1,000 MCG/100 ML IV.SOLN IVC SCH ×4 (01:51→21:08)
[2021-06-19] MEDS: Heparin 25,000UNIT/250ML 1/2NS 25,000 UNIT/250 ML IV.SOLN IVC SCH ×2 (01:53→17:58)
[2021-06-19] MEDS: Norepinephrine 4 MG/254 ML IV.SOLN IVC SCH (03:06)
[2021-06-19] MEDS: Artificial Tears SOLN 15 ML BOTTLE BOTH EYES SCH ×5 (03:11→19:30)
[2021-06-19] MEDS: Ipratropium 1 PUFF INHALER IH SCH ×5 (03:50→19:47)
[2021-06-19 03:57] LABS: Red Cell Distribution Width 13.6 % (11.5-14.5)
[2021-06-19 03:58] LABS: Hematocrit 42.2 % (37.5-50.1); Hemoglobin 12.7 g/dL (12.9-16.9); Mean Corpuscular HGB Conc 30.1 g/dL (31.6-35.5); Mean Corpuscular Volume 106.3 fL (83.0-100.0); Nucleated Red Blood Cells 0.1 /100 WBC (0); Platelet Count 229 K/mcL (140-400); Red Blood Count 3.97 M/mcL (4.19-5.50); White Blood Count 26.9 K/mcL (4.3-11.1)
[2021-06-19 04:03] LABS: VBG Ionized Calcium 1.09 mmol/L (1.15-1.35)
[2021-06-19 04:15] LABS: ABG Base Excess -6 mEq/L (-2 to 3); ABG HCO3 26 mEq/L (21-27); ABG Oxygen Saturation 71 % (95-98); ABG PCO2 84 mmHg (35-45); ABG PO2 53 mmHg (85-104); ABG TCO2 29 mEq/L (20-26); Blood Gas Modality AF; Blood Gas VT 420 cc
[2021-06-19 04:16] LABS: Heparin anti-factor XA UFH 0.83 IU/mL (0.30-0.70)
[2021-06-19 04:17] LABS: Albumin 3.2 g/dL (3.5-5.7); Albumin/Globulin Ratio 1.1 (1.1-2.2); Bilirubin,Direct 0.2 mg/dL (0.0-0.2); Bilirubin,Indirect 0.2 mg/dL (0.0-1.0); Bilirubin,Total 0.4 mg/dL (0.3-1.0); Calcium 7.7 mg/dL (8.6-10.3); Globulin 2.9 g/dL (2.4-3.5); Magnesium 2.6 mg/dL (1.6-2.6); Phosphorous 4.7 mg/dL (2.7-4.5); Total Protein 6.1 g/dL (6.4-8.9)
[2021-06-19] MEDS: PrismaSATE BGK 4/2.5 5,000 ML CRRT SCH ×4 (04:30→09:30)
[2021-06-19 05:26] LABS: Lymphocytes # 0.5 K/mcL (0.6-4.6); Monocytes # 0.8 K/mcL (0.0-1.3); Neutrophils # 24.5 K/mcL (1.6-8.9)
[2021-06-19 05:27] LABS: Platelet Estimate Normal (Normal)
[2021-06-19] MEDS: Norepinephrine 8 MG in 0.9 % Sodium Chloride 4 MG/250 ML IVBAG IVC SCH ×2 (05:40→09:00)
[2021-06-19] MEDS: Amiodarone Premix 360 MG/200 ML BAG IVC SCH ×2 (06:22→19:00)
[2021-06-19] MEDS: Budesonide/Formoterol 160/4.5 1 PUFF INH IH SCH ×2 (08:00→19:47)
[2021-06-19] MEDS: Insulin DETEMIR 100 UNIT/ML X5UNITS SUBQ SCH ×2 (09:30→19:27)
[2021-06-19] MEDS: Chlorhexidine Rinse 15 ML MOUTHWASH MM SCH ×2 (09:30→19:32)
[2021-06-19] MEDS: Dexamethasone Sodium Phos/PF 10 MG/ML VIAL IVP SCH (09:30)
[2021-06-19] MEDS: Cholecalciferol (D-3) 1,000 UNIT (25MCG) TABLET PO SCH (09:30)
[2021-06-19] MEDS: Pantoprazole 40 MG VIAL IVP SCH (09:30)
[2021-06-19] MEDS: Piperacillin/Tazobactam 3.375 GM in 0.9 % Sodium Chloride Mini Bag 100 ML IVPB SCH ×2 (09:32→19:33)
[2021-06-19] MEDS ORDERED: Insulin Human Regular 250 UNIT in 0.9 % Sodium Chloride 250 ML IVC SCH (09:45)
[2021-06-19 11:54] LABS: ABG Base Excess -3 mEq/L (-2 to 3); ABG HCO3 29 mEq/L (21-27); ABG Oxygen Saturation 65 % (95-98); ABG PCO2 93 mmHg (35-45); ABG PO2 48 mmHg (85-104); ABG TCO2 32 mEq/L (20-26); Blood Gas VT 420 cc
[2021-06-19] MEDS: Norepinephrine 16 MG in 0.9 % Sodium Chloride 500 ML IVC SCH ×3 (12:14→21:52)
[2021-06-19] MEDS ORDERED: 0.9 % Sodium Chloride 1,000 ML ONE (13:41)
[2021-06-19] MEDS: Phenylephrine 50 MG in 0.9 % Sodium Chloride 250 ML IVC SCH ×2 (14:00→21:48)
[2021-06-19] MEDS: Insulin Human Regular 250 UNIT in 0.9 % Sodium Chloride 250 ML IVC SCH ×2 (15:00→21:57)
[2021-06-19 15:26] LABS: ABG Base Excess -6 mEq/L (-2 to 3); ABG HCO3 27 mEq/L (21-27); ABG Oxygen Saturation 59 % (95-98); ABG PCO2 100 mmHg (35-45); ABG PH 7.04 pH Units (7.32-7.45); ABG PO2 46 mmHg (85-104); ABG TCO2 30 mEq/L (20-26); Blood Gas VT 420 cc
[2021-06-19] MEDS ORDERED: Sodium Bicarbonate 150 MEQ in D5% in Water 1,000 ML IVC SCH (15:30)
[2021-06-19] MEDS: Cisatracurium 200 MG in 0.9 % Sodium Chloride 180 ML IVC SCH (16:10)
[2021-06-19 16:15] VITALS: TEMP 98.6
[2021-06-19] MEDS ORDERED: Clinimix 5%-20% SOLUTION 2,000 ML with MVI, adult with vitamin K 10 ML, Sodium Acetat... IVC SCH (17:00)
[2021-06-19] MEDS ORDERED: Ondansetron ODT 4 MG TAB.RAPDIS SL PRN (23:14)
[2021-06-19] MEDS ORDERED: Atropine Sulfate 1% 40 DROP/2 ML BOTTLE SL PRN (23:14)
[2021-06-19] MEDS ORDERED: Haloperidol Lactate 5 MG/ML VIAL IVP PRN (23:14)
[2021-06-20] MEDS: Artificial Tears SOLN 15 ML BOTTLE BOTH EYES SCH (01:02)
[2021-06-20 02:05] VITALS: BP 58/42; PULSE 122; O2SAT 74
== END 2021-06-20 00:35 | disposition expired | DRG 208 ==
LOC: EMEROOARM 15:21 → 2ANU 15:21 → SUATTDRO 18:42 → 2ANU 18:49 → 2NENU 06-10 13:34 → ICNU 06-16 13:38
PROVIDERS: ADMIT Internal Medicine; ATTEND General Practice